=== PATIENT | male | born 1980 | race Caucasian/White ===

== ENCOUNTER 2018-11-02 14:29 | Emergency (ER) | payer SELFPAY ==
[~2018-11-02] VITALS: Ht 177.8 cm; Wt 113.4 kg
--- OUTSIDE RECORDS SUMMARY | 2018-11-02 17:28 | XMS ---
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 Hayde has no Care Guidelines for this patient. [facility] NOTE: Visits indicate total known visits. ED/C VISIT TRACKING (12 MO.) 11/02/2018 14:[address] [facility] TYPE: Emergency COMPLAINT: - UNRESPONSIVE 10/31/2018 17:04 [facility] [place] TYPE: Emergency COMPLAINT: - FLU SYMPTOMS INPATIENT VISIT TRACKING (12 MO.) No inpatient visits to display in this time frame [email or web address]
--- NOTE | 2018-11-02 22:37 | EKG ---
[facility] [address] [facility] [place] [address] Signed Sinus rhythm with premature atrial complexes Nonspecific ST abnormality Abnormal ECG Confirmed by RANDI VEGA MD ([id number]) on 11/02/2018 10:37:04 PM Electronically Signed By: RANDI VEGA MD 11/02/18 2237 PATIENT NAME: MARIALUISA AGARWAL BHUMI Electrocardiogram DATE OF : 78 PHYSICIAN: RANDI VEGA MD REPORT #: [id number] REPORT IS CONFIDENTIAL AND NOT TO BE RELEASED WITHOUT AUTHORIZATION
--- NOTE | 2018-11-06 13:06 | NUR ---
I WAS CONTACTED BY ER AT 15:05 ABOUT PT WHO CODED. HELP WAS NEEDED TO FIND PTS NEXT OF [facility]. I CONTACTED PTS XWIFE INFORMING HER THAT PTS WAS IN THE ER AT [facility]. SHE GAVE ME PTS PARENTS CONTACT INFO WHO WERE CLOSER TO [facility]. AFTER SEVERAL TRIES I WAS ABLE TO CONTACT PTS FATHER INFORMING HIM THAT HIS SON WAS IN THE ED. I INFORMED BOTH OF THEM THAT PT WAS INTIBATED AND THAT HE WOULD BE TRANSFERED, GIVING BOTH OF THEM THE HOSPITALS CONTACT INFO. IT WAS APPROX 17:00 WHEN I GOT AHOLD OF PTS PARENTS. I CHECKED IN WITH STAFF BEFORE I LEFT AND GAVE THEM THE CONTACT NUMBERS I HAD FOUND. CONTACT INFO WAS PASSED ON TO THE AMBULANCE TRANSPORTING PT WITH CONFORMATION THAT THEY HAD BEEN INFORMED OF PTS STATUS.
== END 2018-11-02 18:25 | disposition short-term general hospital (02) ==
LOC: ED 14:29 → EDBD 14:31 → ED 18:25
DX: I46.9 Cardiac arrest, cause unspecified (principal); J80 Acute respiratory distress syndrome; J11.1 Influenza due to unidentified influenza virus with other respiratory manifestations; Z88.0 Allergy status to penicillin
CPT/HCPCS: 31500; 36600; 51702; 70450; 71045; 71250; 71275; 80053; 80164; 80178; 82803; 83605; 83735; 84484; 85025; 85379; 93005; 93010; 94002; 99291; 99292; J0330; J0456; J0696; J1953; J2060; J2704; J3370; J3480; J7050; J7060; J7120; Q2009; Q9967